=== PATIENT | male | born 1940 | race African-American/Black ===

== ENCOUNTER 2024-10-30 12:38 | Emergency (ER) | payer BC ==
[~2024-10-30] VITALS: Ht 182.9 cm; Wt 90.0 kg
[2024-10-30 12:40] VITALS: O2SAT 98
[2024-10-30 13:09] LABS: BASOPHILS % 0.8 % (0.0-2.0); EOSINOPHILS % 3.1 % (0.0-5.0); HEMATOCRIT. 28.5 % (42.0-52.0); HEMOGLOBIN. 8.5 g/dL (14.0-18.0); MEAN CORPUSCULAR HEMOGLOBIN 21.9 pg (28.0-32.0); MEAN PLATELET VOLUME 8.5 fl (7.4-10.4); MONOCYTES % 8.8 % (2.0-8.0); NEUTROPHILS % 55.3 % (40.0-76.0); PLATELET 220 x1000/uL (130-400); RED BLOOD CELL COUNT 3.91 mill/uL (4.7-6.1); RED CELL DISTRIBUTION WIDTH 22.4 % (11.6-14.6); WHITE BLOOD COUNT 3.7 x1000/uL (4.5-11.0)
[2024-10-30 13:19] LABS: INR 1.3
[2024-10-30 13:24] LABS: ADD RBC MORPHOLOGY YES; DIFFERENTIAL COMMENT 1
[2024-10-30 13:29] LABS: CHLORIDE 106 mEq/L (98-107); POTASSIUM 3.9 mEq/L (3.5-5.1); SODIUM 140 mEq/L (136-145)
[2024-10-30 13:30] LABS: CALCIUM 9.3 mg/dL (8.7-10.4); CARBON DIOXIDE 25 mEq/L (21-32)
[2024-10-30 13:35] LABS: CREATININE 1.4 mg/dL (0.6-1.3); GLUCOSE 141 mg/dL (70-105); TROPONIN I HIGH SENSITIVITY 7 ng/L (3.0-53); UREA NITROGEN BLOOD 24 mg/dL (9-23)
[2024-10-30 13:44] LABS: ANISOCYTOSIS 2+; MICROCYTOSIS 2+
[2024-10-30 13:45] LABS: OVALOCYTES 1+; PLATELET ESTIMATE NORMAL
[2024-10-30 14:33] LABS: IRON 41 ug/dL (65-175)
[2024-10-30 14:36] LABS: TOTAL IRON BINDING CAPACITY 466 ug/dl (250-425)
[2024-10-30] MEDS ORDERED: SODIUM CHLORIDE 0.9% 500 ML IV ONE (14:45)
[2024-10-30] MEDS ORDERED: PANTOPRAZOLE SODIUM 40 MG/VIAL IV ONE (14:45)
[2024-10-30 15:08] LABS: TROPONIN I HIGH SENSITIVITY 9 ng/L (3.0-53)
[2024-10-30 15:37] LABS: CLARITY URINE CLEAR (CLEAR); COLOR URINE YELLOW (YELLOW); GLUCOSE URINE NEGATIVE (NEGATIVE); KETONES URINE NEGATIVE (NEGATIVE); LEUKOCYTE ESTERASE URINE NEGATIVE (NEGATIVE); NITRITE URINE NEGATIVE (NEGATIVE); OCCULT BLOOD URINE NEGATIVE (NEGATIVE); PROTEIN URINE TRACE (NEGATIVE); SPECIFIC GRAVITY URINE 1.018 (1.005-1.030); UROBILINOGEN URINE 0.2 E.U./dL (0.2-1.0)
[2024-10-30 16:10] VITALS: BP 131/70; PULSE 81; RESP 18; TEMP 36.6; O2SAT 100
[2024-10-30 16:26] LABS: BACTERIA URINE 1+; RBC URINE 0-2 /hpf (0-2); SQUAMOUS EPITHELIAL CELL URINE RARE /lpf (RARE/1+); WBC URINE 0-2 /hpf (0-2)
== END 2024-10-30 16:10 | disposition left against medical advice (07) ==
LOC: ER 12:38
DX: R55 Syncope and collapse (principal); D64.9 Anemia, unspecified; E11.9 Type 2 diabetes mellitus without complications; I10 Essential (primary) hypertension
CPT/HCPCS: 99285; 71045; 80048; 81003; 83880; 83540; 83550; 85025; 85610; 84484; 36415; 93005; J7040